=== PATIENT | female | born 1995 | race Caucasian/White ===

== ENCOUNTER → 2018-05-19 12:48 | Observation (INO) ==
[2018-05-19 11:45] LABS: Basophils % 0.1 %; Eosinophils # 0.1 K/mcL (0.0-0.6); Eosinophils % 0.6 %; Hematocrit 36.7 % (35.3-44.9); Hemoglobin 11.8 g/dL (11.5-15.4); Immature Granulocytes % 0.5 % (0-4); Lymphocytes # 1.8 K/mcL (0.6-4.6); Lymphocytes % 16.7 %; Mean Corpuscular HGB Conc 32.2 g/dL (31.6-35.5); Mean Corpuscular Hemoglobin 26.2 pg (28.0-33.3); Mean Corpuscular Volume 81.4 fL (83.0-100.0); Mean Platelet Volume 12.8 fL (9.4-12.4); Monocytes # 0.9 K/mcL (0.0-1.3); Monocytes % 8.8 %; Neutrophils # 7.7 K/mcL (1.6-8.9); Platelet Count 169 K/mcL (140-400); Red Blood Count 4.51 M/mcL (3.82-4.97); Red Cell Distribution Width 14.2 % (11.5-14.5); Segmented Neutrophils % 73.3 %
[2018-05-19 12:22] LABS: Amphetamine Screen,Urine Negative ng/mL (Cutoff=1000); Barbiturate Screen,Urine Negative ng/mL (Cutoff=200); Benzodiazepines Screen,Urine Negative ng/mL (Cutoff=200); Cannabinoid Screen,Urine Negative ng/mL (Cutoff = 50); Cocaine Screen,Urine Negative ng/mL (Cutoff= 300); Opiate Screen,Urine Negative ng/mL (Cutoff=300); Phencyclidine Screen,Urine Negative ng/mL (Cutoff=25); Protein/Creatinine Ratio,Urine 0.15 mg/mg (0.00-0.20)
[2018-05-19 12:23] LABS: Alanine Aminotransferase 17 Units/L (7-52); Aspartate Amino Transferase 19 Units/L (13-39); BUN/Creatinine Ratio 19 (6-26); Blood Urea Nitrogen 9 mg/dL (6-20); Lactate Dehydrogenase 154 Units/L (140-271); eGFR For Non-African Americans > 60 (> 60)
--- NOTE | 2018-05-19 13:03 | OB/GYN Progress Note ---
Date of Encounter: 05/19/18 Time of Encounter: 13:01 - Assessment and Plan (1) Elevated blood pressure affecting in third trimester, antepartum Status: Acute Clarice tensive in triage, PIH labs negative, discharged home with labor and when to return to triage precautions. Patient verbalizes understanding (2) 38 weeks gestation of Status: Acute Subjective - Subjective Interval history: 38+6 weeks gestation presents to triage with elevated blood pressures in office. Patient reports good movement, denies contractions, vaginal bleeding, headache, right upper quadrant pain, visual disturbances. Antepartum ROS: movement normal, no loss of fluid, no vaginal bleeding, no contractions Objective - Vital Signs Vital Signs: Intake and Output 05/18/18 05/19/18 05/19/18 23:59 07:59 15:59 Other: Weight 88.269 kg Patient Weight 05/19/18 23:59 Weight 88.269 kg - Exam FHR: auscultation normal FHR comments: Baseline 135 - Labs Labs: Abnormal lab results MCV 81.4 fL (83.0-100.0) L 05/19/18 11:20 MCH 26.2 pg (28.0-33.3) L 05/19/18 11:20 MPV 12.8 fL (9.4-12.4) H 05/19/18 11:20 Creatinine 0.48 mg/dL (0.60-1.20) L 05/19/18 11:20
== END | disposition home or self-care (01) ==
LOC: 1NENULAB
PROVIDERS: ADMIT Student in an Organized Health Care Education/Training Program; ATTEND Student in an Organized Health Care Education/Training Program

== ENCOUNTER 2018-05-20 08:00 | Inpatient (IN) ==
[2018-05-20] MEDS ORDERED: *HR* Nalbuphine 10 MG/ML AMPUL IVP PRN (08:47)
[2018-05-20] MEDS ORDERED: Ondansetron 4 MG/2 ML VIAL IVP PRN (08:47)
[2018-05-20] MEDS ORDERED: Naloxone 0.4 MG/ML INJ IVP PRN (08:47)
[2018-05-20] MEDS ORDERED: Famotidine 20 MG/2 ML VIAL IVP PRN (08:47)
[2018-05-20] MEDS ORDERED: Metoclopramide 10 MG/2 ML VIAL IVP PRN (08:47)
[2018-05-20] MEDS ORDERED: Ringers Solution, Lactated 1,000 ML IVC SCH (09:00)
[2018-05-20] MEDS ORDERED: miSOPROStol 25 MCG TABLET VG ONE (09:21)
--- NOTE | 2018-05-20 09:26 | OB/GYN History & Physical ---
Addendum entered and electronically signed by Jah Betancourt 05/20/18 12:21 : Patient laboratory and microbiology values showed Rubella IgG antibody positive , GBS negative, Hepatitis-B antibody negative, Treponema pallidum antibody negative, Chlamydia trachomatis PCR negative, HIV antigen/antibody combo negative, Neisseria gonorrhea PCR negative, Varicella-zoster virus IgG antibody negative. Original Note: Date of Encounter: 05/20/18 Time of Encounter: 09:33 Assessment and Plan (1) 39 weeks gestation of Current visit: Yes Status: Acute care with Dr. Dumont. (2) Elective induction of labor planned Current visit: Yes Status: Acute 1. Order placed for Cytotec 50 mcg by mouth at approximately 9:20 AM on 2017. 2. Patient will be monitored for progression of labor for 4 hours with intent to break water, as well as to apply internal monitoring and administer Pitocin if needed. 3. Plan has been discussed with the patient, and patient is in agreement with this plan. (3) Blood type O- Current visit: Yes Status: Acute RhoGAM evaluation after delivery History of Present Illness Chief complaint: Induction of labor HPI: Ms. Chao is a 23 year old primigravida female presenting to [facility] labor and delivery for scheduled induction of labor at 39 weeks +0 days gestation. The patient states her is in the currently and that she scheduled this induction so that she can give while her can be present. 1. The patient states that she experienced intermittent hypertension during this , with systolic blood pressures in the 140s, which is above her baseline of 120 systolic. Patient states that she has been worked up for this hypertension which has been found to be benign. 2. Patient states that she has experienced some degree of heartburn during her which has become progressively worse over the last week. Patient states that she has taken Tums for relief of symptoms, which she feels has well- managed her discomfort. 3. The patient states that she is experiencing good movement, as per usual. Patient states that she has lost her mucous plug, but denies any other discharge at this time. She denies vaginal bleeding or fluid leakage. 4. Patient states no other complications during this and states that she has no concerns or questions at this time. Past Med Surg Social Fam HX - Past Medical History Medical history: no medical history Psychiatric history: no psych history - Past Surgical History Additional surgical history: eye surgery - Social History Smoking Status: Never smoker Smokeless Tobacco Status: No Alcohol use: none Drug use: none - Family History Mother Living Status: Still Living Hx Family Cardiac Disorders: Yes (HTN) Hx Family Respiratory Disorders: Yes (asthma) Hx Family Cancer: No Hx Family GI Disorders: No Hx Family Endocrine Disorder: No Hx Family Neuromuscular Disorders: No Hx Family Neurologic Disorders: No Hx Family HEENT Disorders: No Hx Family Autoimmune Disorders: No Obstetrical History - Pregnancies : 1 Para: 0 Term: 0 : 0 Ab's: 0 Livin - History/Complications History/Complications: As per history of present illness. Patient states no other complications or concerns during this . Medications and Allergies Vit #108/Iron/FA [ One Tablet] 1 mg PO DAILY 05/19/18 [History] 3 Allergy/AdvReac Type Severity Reaction Status Date / Time No Known Allergies Allergy Verified 05/19/18 11:34 Review of System OB All systems PM: reviewed and no additional remarkable complaints except as stated - Constitutional Constitutional ROS IM: no headache(s) - Cardiovascular Cardiovascular: edema (Patient states that she has had intermittent episodes of spontaneously resolving mild edema during . The patient denies numbness or paresthesias of the extremities.), no chest pain, no dyspnea - Respiratory Respiratory: no dyspnea - Gastrointestinal Gastrointestinal: no abdominal pain, no nausea, no vomiting - Neurological Nerological: no disequilibrium, no dizziness, no headache(s), no lack of coordination, no loss of vision, no numbness, no paresthesias, no other visual disturbances Exam - Constitutional Constitutional: well developed, well nourished, no acute distress, average body habitus, other (Upon initial examination patient is lying in hospital bed, and appears to be in no acute distress. She is engaged to conversation, pleasant, answers questions appropriately, speech is fluid, and there appear to be no focal neurological defects. Mood and affect appear to be consistent with the environment.) - HEENT HEENT: EOMI, PERRL, Normocephaly, Mucus Membranes Moist - Lungs Respiratory exam: CTAB - Cardiovascular Cardiovascular exam: RRR, +S1, +S2, systolic murmur (There is a soft, 1/6 systolic murmur noted at the second intercostal space left of the sternum.) - Abdomen Abdomen: Present: bowel sounds normal, gravid, non tender. Absent: bruit present, guarding noted, hepatomegaly, splenomegaly, mass - Extremities Extremities exam: normal inspection (Pulse, motor, and sensation were intact in all 4 extremities.), warm, radial pulses palpable and symmetrical Results Result Diagrams: 05/20/18 08:50 All other labs normal. - VTE Reasons for not Prescribing Prophylaxis: Treatment not Indicated - Low risk for VTE - Attending Attestation I examined this patient and my medical decision-making was reviewed with the Resident Physician. I agree with the documented findings, disposition and treatment plan as described except to the extent set forth below: The patient has an O- blood type and will receive RhoGAM evaluation after delivery. heart tones initially 140s baseline and category 1. Cervical exam /-2, vertex presenting.
[2018-05-20] MEDS ORDERED: miSOPROStol 25 MCG TABLET PO ONE (09:35)
[2018-05-20 10:23] LABS: Amphetamine Screen,Urine Negative ng/mL (Cutoff=1000); Barbiturate Screen,Urine Negative ng/mL (Cutoff=200); Benzodiazepines Screen,Urine Negative ng/mL (Cutoff=200); Cannabinoid Screen,Urine Negative ng/mL (Cutoff = 50); Cocaine Screen,Urine Negative ng/mL (Cutoff= 300); Opiate Screen,Urine Negative ng/mL (Cutoff=300); Phencyclidine Screen,Urine Negative ng/mL (Cutoff=25)
--- NOTE | 2018-05-20 11:01 | Anesthesia Evaluation PreOp ---
Date of Encounter: 05/20/18 Time of Encounter: 10:59 - Past History Planned Operation: omari Cardiac History: Denies any Significant Hx Pulmonary History: Denies Any Significant HX ROVING SIZER History: Denies Any Significant HX Other Medical History: Denies Any Significant HX Anesthesia History: No Prior Anesthetic Complications, Past Anesthesia (eye ( strabismus)) : Yes (, 39 weeks) Alcohol Use: none Drug use: none Medications and Allergies Vit #108/Iron/FA [ One Tablet] 1 mg PO DAILY 05/19/18 [History] 3 Allergy/AdvReac Type Severity Reaction Status Date / Time No Known Allergies Allergy Verified 05/19/18 11:34 - Meds/Allergy Pre-op Review Medications Reviewed: Yes Allergies Reviewed: Yes Beta Blockers on Current Med List: No Anesthesia Exam O2 Sat Height 1.68 m Height 1.68 m Weight 88.451 kg Weight 88.451 kg 127/79 Height: 66 Weight: 88 - HEENT Pupil (Motor): Pupils equal Mallampati: II Teeth: Normal Oral Opening: Greater than 3 - ROVING SIZER LOC: Oriented ROVING SIZER Motor: Normal RUE, Normal LUE, Normal RLE, Normal LLE, Normal Face ROVING SIZER Sensory: Normal: RUE, LUE, RLE, LLE, Face - Cardiac Rhythm: Regular Murmur: None JVD: No Carotid Bruit: No - Pulmonary Breath Sounds: bilateral Clear Respiratory Effort: Symmetrical Anesthesia Assess/Plan ASA Score: 2 Modified Cyn Scale for Level of Consciousness: Cooperative, oriented, and tranquil Anesthetic Plan: Regional Monitoring Plan: Standard Monitors
[2018-05-20 11:49] LABS: Basophils % 0.2 %; Eosinophils # 0.1 K/mcL (0.0-0.6); Eosinophils % 1.1 %; Hematocrit 35.8 % (35.3-44.9); Hemoglobin 11.2 g/dL (11.5-15.4); Immature Granulocytes % 0.5 % (0-4); Lymphocytes # 1.8 K/mcL (0.6-4.6); Lymphocytes % 20.3 %; Mean Corpuscular HGB Conc 31.3 g/dL (31.6-35.5); Mean Corpuscular Hemoglobin 25.7 pg (28.0-33.3); Mean Corpuscular Volume 82.3 fL (83.0-100.0); Monocytes # 0.8 K/mcL (0.0-1.3); Monocytes % 9.2 %; Platelet Count 167 K/mcL (140-400); Red Blood Count 4.35 M/mcL (3.82-4.97); Red Cell Distribution Width 14.3 % (11.5-14.5); Segmented Neutrophils % 68.7 %
--- NOTE | 2018-05-20 12:40 | OB Labor Progress Note ---
Date of Encounter: 05/20/18 Time of Encounter: 12:15 Labor Progress Note - Subjective Subjective: The patient reports starting to feel contractions but not bad enough that she needs pain medication at this time. She has had no loss of fluid or vaginal bleeding - Vital Signs Vital Signs: Afebrile, vital signs stable. Blood pressure 131/58, pulse 58 - Heart Tones Heart Tones: 140s baseline, CAT 1 - [place]: Appear irregular on external toco - Interventions Interventions: 39 week IUP for induction of labor in a primiparous patient for social indications with favorable cervix. - Plan Plan: The patient received her first dose of 50 mcg of oral Cytotec around 10 AM. Reevaluation for cervical change at 1400 today. Possible AROM with IUPC. Concern over cephalopelvic disproportion due to station. Close observation with aggressive positioning to maximize descent.
[2018-05-20] MEDS ORDERED: Oxytocin 20 units/ LR 1000 mL 20 UNIT/1,000 ML BAG IVC SCH (14:15)
[2018-05-20] MEDS ORDERED: Epidural Premix (fent/bupiv) 0 ML EP ONE (15:35)
[2018-05-20] MEDS ORDERED: Epidural Premix (fent/bupiv) 110 ML EP ONE (15:38)
[2018-05-20] MEDS ORDERED: *HR* FentaNYL (PF) 100 MCG/2 ML VIAL EP ONE (15:44)
[2018-05-20] MEDS ORDERED: EPHEDrine 50 MG/ML VIAL IVP PRN (15:44)
[2018-05-20] MEDS ORDERED: *HR* Ropivacaine/PF 0.2% 20 ML VIAL EP ONE (15:44)
[2018-05-20] MEDS ORDERED: Epidural Premix (fent/bupiv) 110 ML EP SCH (15:45)
--- NOTE | 2018-05-20 15:48 | Anesthesia Procedures ---
Date of Encounter: 05/20/18 Time of Encounter: 15:47 Procedures: Anesthesia - Epidural/Spinal Patient ID/Chart reviewed: Yes Patient examined: Yes OB Eval: Gestational age: 39 OB Eval: : 1 OB Eval: Hx Para: 0 OB Eval: Dilated at (cm): 3 OB Eval: Contractions: Non-stressed pattern Consent Obtained: Yes Supplemental Oxygen: None/Room Air Site Prep: Aseptic Technique, 0.5% Chlorhexidine/Alcohol Patient position: upright Local Anesthetic: Lidocaine 1% Amount of Local Anesthetic used: 3 Touhy Needle Gauge: 18 Touhy Needle Depth (cm): 7 Catheter Depth at Skin (cm): 12 Test Dose (1.5% Lido + Epi): Volume given (mls): 3 Test Dose Result: Negative Loading Dose: Fentanyl (mcg): 100 Loading Dose: Other: ropi 0.2% 6cc Loading Dose Administered: Thru Touhy Needle Infusion Med: 0.125% Bupivacaine w/ 2 mcg/ml Fentanyl Infusion Rate (mls/hr): [address]: Tegaderm Interspace Used: L2-L3
[2018-05-20] MEDS ORDERED: Water for inj. (sterile) 10 ML IV ONE (15:52)
[2018-05-20] MEDS ORDERED: *HR* Ropivacaine/PF 0.2% 20 ML VIAL ONE (15:52)
[2018-05-20] MEDS ORDERED: *HR* FentaNYL (PF) 100 MCG/2 ML VIAL ONE (15:52)
[2018-05-20] MEDS ORDERED: Lidocaine -MPF 2% 5 ML VIAL ONE (15:52)
--- NOTE | 2018-05-20 16:43 | OB Labor Progress Note ---
Date of Encounter: 05/20/18 Time of Encounter: 09:00 Labor Progress Note - Subjective Subjective: The patient is comfortable with her epidural - Vital Signs Vital Signs: Afebrile, vital signs stable, blood pressure 111/56, pulse 73 - Cervix Cervix: 3/90/-2, vertex well applied - Heart Tones Heart Tones: 130s baseline, CAT 1 - [place]: Contractions 2-4 minutes on 4 milliunits of Pitocin - Interventions Interventions: 39 week IUP for induction of labor - Plan Plan: Amniotomy, small amount of clear fluid. IUPC placed without difficulty. Continue induction of labor. Discussed using peanut ball for pelvic manipulation to help with descent with patient and partner who voice understanding
--- NOTE | 2018-05-20 23:00 | OB Labor Progress Note ---
Date of Encounter: 05/20/18 Time of Encounter: 22:57 Labor Progress Note - Subjective Subjective: Pt comfortable with her epidural - Vital Signs Vital Signs: afeb,VSS - Cervix Cervix: 6-7/90/-1 - Heart Tones Heart Tones: 130s baseline, CAT1 - [place]: Ctx q 2-4' x 50 mmHg on 9 mU pitocin - Interventions Interventions: 39 wk IOL - Plan Plan: Cont induction with pelvic positioning
[2018-05-21] MEDS ORDERED: Lidocaine/EPI 1:100k 2% 20 ML VIAL INFILT ONE (01:43)
--- NOTE | 2018-05-21 03:06 | OB/GYN Procedure Note ---
Delivery - Delivery Date: 05/21/18 Provider: Kika Judd Intrapartum events: none Delivery induction: misoprostol Delivery augmentation: rupture of membranes, pitocin Delivery monitor: external FHT, external uterine, internal uterine Anesthesia: epidural Quantitated Blood Loss: 200 - (s) Infant A Infant Delivery Date: 05/21/18 Delivery Time: 02:38 Presentation: vertex Position: DELORIS Route of delivery: Gender: Male Viability: Viable Pounds: 7 Ounces: 1 at 1 minute: 9 at 5 mins: 9 Shoulder Dystocia: not encountered Specimens collected: cord blood Placenta: spontaneous Cord: 3 umbilical vessels - Repair Laceration Description: Labial (left) - Complications Delivery complications: none Delivery comments: The patient was complete and pushing with epidural anesthesia with a spontaneous vaginal delivery in the DELORIS position of a vigorous male infant weighing 7 lbs. 1 oz. with Apgars of 9 at 1 minute and 9 at 5 minutes. was placed on the maternal abdomen. The cord was clamped and cut after pulsations ceased. Cord blood obtained. The placenta was delivered spontaneous and intact. Left labial laceration was was repaired with 4-0 Monocryl in a running nonlocking fashion. Estimated blood loss 200 mL, complications none - Disposition Mom disposition: stable in LDR disposition: stable in LDR
[2018-05-21] MEDS ORDERED: Oxytocin 20 units/ LR 1000 mL 20 UNIT/1,000 ML BAG IVC SCH (04:56)
[2018-05-21] MEDS ORDERED: Rho Immune Globulin 1,500 UNIT SYRINGE IM PRN (04:56)
[2018-05-21] MEDS ORDERED: Acetaminophen 325 MG TABLET PO PRN (04:56)
[2018-05-21] MEDS ORDERED: *HR* HYDROcodone/Acet 5/325 mg TABLET PO PRN (04:56)
[2018-05-21] MEDS ORDERED: Oxytocin 20 units/ LR 1000 mL 20 UNIT/1,000 ML BAG IVC ONE (05:02)
[2018-05-21] MEDS ORDERED: Ibuprofen 600 MG TABLET PO SCH (06:00)
[2018-05-21] MEDS: Prenatal Vit/FA 1 EACH TABLET PO SCH (09:16)
[2018-05-22 06:46] LABS: Basophils % 0.3 %; Eosinophils # 0.1 K/mcL (0.0-0.6); Eosinophils % 1.2 %; Hemoglobin 11.7 g/dL (11.5-15.4); Immature Granulocytes % 0.9 % (0-4); Immature Platelets 15.7 % (1.1-6.1); Lymphocytes # 2.9 K/mcL (0.6-4.6); Lymphocytes % 24.4 %; Mean Corpuscular HGB Conc 31.6 g/dL (31.6-35.5); Mean Corpuscular Hemoglobin 26.2 pg (28.0-33.3); Mean Corpuscular Volume 82.8 fL (83.0-100.0); Mean Platelet Volume 12.6 fL (9.4-12.4); Monocytes # 1.1 K/mcL (0.0-1.3); Monocytes % 9.6 %; Neutrophils # 7.5 K/mcL (1.6-8.9); Platelet Count 155 K/mcL (140-400); Red Blood Count 4.47 M/mcL (3.82-4.97); Red Cell Distribution Width 14.4 % (11.5-14.5); Segmented Neutrophils % 63.6 %
[2018-05-22 07:46] VITALS: BP 130/83
--- NOTE | 2018-05-22 09:53 | Discharge Summary ---
Date of Encounter: 05/22/18 Time of Encounter: 09:51 - Discharge Diagnosis (1) Vaginal delivery Priority: Primary Status: Acute Comments: Pt meeting all milestones. She desires to discharge to guest today. (2) Blood type O- Priority: Secondary Status: Acute Comments: Rhogam given yesterday. (3) Elevated blood pressure affecting in third trimester, antepartum Priority: Secondary Status: Acute Comments: BP normal - Discharge Medications Prescriptions: Ibuprofen [Motrin] 600 mg PO Q6HR #30 tablet Docusate [Colace] 100 mg PO BID #30 capsule Home Medications: Vit #108/Iron/FA [ One Tablet] 1 mg PO DAILY 05/19/18 [History] Docusate [Colace] 100 mg PO BID #30 capsule 05/22/18 [Rx] Ibuprofen [Motrin] 600 mg PO Q6HR #30 tablet 05/22/18 [Rx] Allergies/Adverse Reactions: 3 Allergy/AdvReac Type Severity Reaction Status Date / Time No Known Allergies Allergy Verified 05/19/18 11:34 Data Procedures and tests throughout hospitalization: Laboratory Tests 05/20/18 05/20/18 05/21/18 08:50 08:50 03:25 WBC 8.7 RBC 4.35 Hgb 11.2 L Hct 35.8 MCV 82.3 L MCH 25.7 L MCHC 31.3 L RDW 14.3 Plt Count 167 MPV 13.0 H Immature Gran % 0.5 Seg Neutrophils % 68.7 Lymphocytes % 20.3 Monocytes % 9.2 Eosinophils % 1.1 Basophils % 0.2 Neutrophils # 6.0 Lymphocytes # 1.8 Monocytes # 0.8 Eosinophils # 0.1 Basophils # 0.0 Immature Plt Fraction Urine Opiates Screen Negative Ur Barbiturates Screen Negative Ur Phencyclidine Scrn Negative Ur Amphetamines Screen Negative U Benzodiazepines Scrn Negative Urine Cocaine Screen Negative U Marijuana (THC) Screen Negative Ur Drug Screen Interp See Below Screen NEGATIVE Baby's Blood Type O RH POSITIVE Mother's Blood Type O RH NEGATIVE Rhogam Indicated YES Rhogam Req for Mother 1 05/22/18 06:09 WBC 11.9 H RBC 4.47 Hgb 11.7 Hct 37.0 MCV 82.8 L MCH 26.2 L MCHC 31.6 RDW 14.4 Plt Count 155 MPV 12.6 H Immature Gran % 0.9 Seg Neutrophils % 63.6 Lymphocytes % 24.4 Monocytes % 9.6 Eosinophils % 1.2 Basophils % 0.3 Neutrophils # 7.5 Lymphocytes # 2.9 Monocytes # 1.1 Eosinophils # 0.1 Basophils # 0.0 Immature Plt Fraction 15.7 H Urine Opiates Screen Ur Barbiturates Screen Ur Phencyclidine Scrn Ur Amphetamines Screen U Benzodiazepines Scrn Urine Cocaine Screen U Marijuana (THC) Screen Ur Drug Screen Interp Screen Baby's Blood Type Mother's Blood Type Rhogam Indicated Rhogam Req for Mother Labs on day of discharge: Labs from last 24 hours 05/22/18 05/21/18 06:09 03:25 WBC 11.9 H RBC 4.47 Hgb 11.7 Hct 37.0 MCV 82.8 L MCH 26.2 L MCHC 31.6 RDW 14.4 Plt Count 155 MPV 12.6 H Immature Gran % 0.9 Seg Neutrophils % 63.6 Lymphocytes % 24.4 Monocytes % 9.6 Eosinophils % 1.2 Basophils % 0.3 Neutrophils # 7.5 Lymphocytes # 2.9 Monocytes # 1.1 Eosinophils # 0.1 Basophils # 0.0 Immature Plt Fraction 15.7 H Screen NEGATIVE Baby's Blood Type O RH POSITIVE Mother's Blood Type O RH NEGATIVE Rhogam Indicated YES Rhogam Req for Mother 1 Date of admission: 05/20/18 08:06 Primary care physician: PCP NONE Consults: 05/21/18 04:56 Consult to [employer]s Supervisor [CONS] Routine Comment: Vaginal delivery, consult needed Discharging clinician: Molly Smith Anticipated date of discharge: 05/22/18 - Patient Status Disposition: Home, Self-Care Condition: Good Functional capacity at discharge: independent ambulation Overall status at discharge: patient is progressing back to baseline - Discharge Instructions Follow Up With: NONE,PCP [Primary Care Provider] - Kika Judd MD [Partnered Physician] - - Diet and Activity Activity: increase activity as tolerated Diet: regular diet Hospital Course Reason for admission: induction of labor Delivery: Episiotomy: none Laceration: other (labial) Other procedures: none complications: none Discharge diagnosis: IUP at term delivered baby: male Hospital course: - Delivery Date: 05/21/18 Provider: Kika Judd Intrapartum events: none Delivery induction: misoprostol Delivery augmentation: rupture of membranes, pitocin Delivery monitor: external FHT, external uterine, internal uterine Anesthesia: epidural Quantitated Blood Loss: 200 - (s) A Infant Delivery Date: 05/21/18 Delivery Time: 02:38 Presentation: vertex Position: DELORIS Route of delivery: Gender: Male Viability: Viable Pounds: 7 Ounces: 1 at 1 minute: 9 at 5 mins: 9 Shoulder Dystocia: not encountered Specimens collected: cord blood Placenta: spontaneous Cord: 3 umbilical vessels - Repair Laceration Description: Labial (left) - Complications Delivery complications: none - Disposition Mom disposition: home PPD#1 disposition: home with mother Time Attestation: Total time spent providing and/or coordinating discharge services: Time Spent: Less than 30 minutes Exam - Constitutional Vitals: Temp Pulse Resp BP Pulse Ox 97.4 F L 78 14 130/83 99 05/22/18 07:46 05/22/18 07:46 05/22/18 07:46 05/22/18 07:46 05/22/18 07:46 General appearance IM: A&O X 3 - Respiratory Respiratory exam: Present: CTAB - Cardiovascular Cardiovascular exam IM: Present: RRR - GI/Abdominal GI/Abdominal exam IM: soft, no peritoneal signs - Uterine Tone: Firm Uterus Position: At Umbilicus - Extremities Exam Extremities exam IM: Present: normal inspection, pedal edema - Neurological Exam Neurological exam: normal gait, oriented X3 - Psychiatric Additional comments: reports good mood
[2018-05-22] MEDS: Prenatal Vit/FA 1 EACH TABLET PO SCH (10:12)
== END 2018-05-22 19:18 | disposition home or self-care (01) | DRG 774 ==
LOC: 1NENULAB 08:06 → 1NENUOBS 05-21 04:54
PROVIDERS: ADMIT Obstetrics & Gynecology; ATTEND Obstetrics & Gynecology